=== PATIENT | female | born 1980 | race Hispanic/Latino ===

== ENCOUNTER 2017-09-13 15:32 | Emergency (ER) | payer MEDICAID | END 2017-09-13 16:44 | disposition home or self-care (01) | LOC: EDH 15:32 | DX: T82.594A Other mechanical complication of infusion catheter, initial encounter (principal); E11.9 Type 2 diabetes mellitus without complications; M41.9 Scoliosis, unspecified; Z85.6 Personal history of leukemia; Z91.041 Radiographic dye allergy status; Z88.6 Allergy status to analgesic agent; Z98.890 Other specified postprocedural states; Z85.72 Personal history of non-Hodgkin lymphomas; Z87.891 Personal history of nicotine dependence; Z88.0 Allergy status to penicillin | CPT/HCPCS: 99281 ==

== ENCOUNTER 2017-11-29 19:58 | Emergency (ER) | payer MEDICAID ==
[2017-11-29] MEDS ORDERED: SODIUM CHLORIDE 0.9% 1000ML 1,000 ML IV ONE (20:45)
[2017-11-29] MEDS ORDERED: HYDROCODONE/ACETAMINOPHEN 7.5/325 MG 15 ML UDCUP ONE ×2 (20:51→22:42)
[2017-11-29 20:54] LABS: BASOPHILS % (AUTO) 0.8 % (0.0-5.0); EOSINOPHILS % (AUTO) 1.8 % (0.0-8.0); HEMATOCRIT 42.6 % (36-48); LYMPHOCYTES % (AUTO) 29.6 % (21.0-51.0); MEAN CORPUSCULAR VOLUME 81.7 fL (79-99); MONOCYTES % (AUTO) 5.6 % (3.0-13.0); NEUTROPHILS % (AUTO) 62.2 % (40.0-77.0); PLATELET COUNT (AUTO) 262 K/uL (130-400); RED BLOOD CELL COUNT(AUTO) 5.21 MIL/uL (4.00-5.50); RED CELL DISTRIBUTION WIDTH 14.1 % (11.0-15.5); WHITE BLOOD COUNT (AUTO) 17.5 K/uL (4.8-10.8)
[2017-11-29 21:11] LABS: CREATININE 0.7 mg/dL (0.5-1.5)
[2017-11-29 21:14] LABS: ALBUMIN 3.5 g/dL (3.5-5.0); BILIRUBIN,TOTAL 0.2 mg/dL (0.2-1.0); TOTAL PROTEIN, SERUM 8.3 g/dL (6.0-8.3)
[2017-11-29 21:33] LABS: INR 0.91 (0.85-1.15); PROTHROMBIN TIME 9.6 SEC (9.6-11.6)
== END 2017-11-29 23:16 | disposition home or self-care (01) ==
LOC: EEVIPCON 19:58 → EDH 19:58
DX: L03.314 Cellulitis of groin (principal); N76.0 Acute vaginitis; E11.9 Type 2 diabetes mellitus without complications; R79.1 Abnormal coagulation profile; M41.9 Scoliosis, unspecified; Z88.0 Allergy status to penicillin; Z91.041 Radiographic dye allergy status; Z88.6 Allergy status to analgesic agent; Z88.1 Allergy status to other antibiotic agents; Z85.6 Personal history of leukemia; Z85.72 Personal history of non-Hodgkin lymphomas
CPT/HCPCS: 36415; 80053; 80339; 83605; 85025; 85610; 85730; 99284; J7030